=== PATIENT | male | born 1985 | race Caucasian/White ===

== ENCOUNTER 2024-09-14 12:33 | Emergency (ER) | payer OTHER, SELFPAY ==
[2024-09-14 12:38] VITALS: BP 120/81
[2024-09-14 13:03] LABS: % Basophils 0.5 % (0-2); % Eosinophils 0.8 % (0-6); % Immature Granulocytes 0.3 % (0-0.5); % Lymphocytes 28.3 % (20.5-51.1); % Neutrophils 62.1 % (42.2-75.2); Absolute Lymphocytes 1.1 10^3/uL (1.2-3.4); Absolute Monocytes 0.3 10^3/uL (0.1-0.6); Absolute Neutrophils 2.4 10^3/uL (1.4-6.5); Hematocrit 44.2 % (39.0-52.0); Hemoglobin 14.8 g/dL (13.0-18.0); Mean Corp Hgb Conc. 33.5 g/dL (33.0-37.0); Mean Corpuscular Hgb 30.4 pg (27.0-31.0); Mean Corpuscular Volume 90.8 fL (80.0-94.0); Mean Platelet Volume 10.2 fL (7.4-10.4); Nucleated Red Blood Cells % 0 % (-); Platelet Count 254 10^3/uL (130-400); Red Blood Cell Count 4.87 10^6/uL (4.70-6.10); White Blood Cell Count 3.9 10^3/uL (4.8-10.8)
[2024-09-14 13:37] LABS: Alkaline Phosphatase 54 U/L (38-126); Blood Urea Nitrogen 19 mg/dl (9-20); Calcium 9.6 mg/dl (8.4-10.2); Carbon Dioxide 29 mmol/L (22-30); Chloride 103 mmol/L (98-107); Glucose 90 mg/dl (70-99); Potassium 4.5 mmol/L (3.5-5.1); Sodium 142 mmol/L (135-145); eGFR > 60.00
[2024-09-14 13:38] LABS: ALT (SGPT) 24 U/L (0-50); AST (SGOT) 24 U/L (17-59); Albumin 4.8 g/dl (3.5-5.0); Total Bilirubin 0.5 mg/dl (0.2-1.3); Total Protein 7.3 g/dl (6.3-8.2)
[2024-09-14 13:39] LABS: Direct Bilirubin 0.1 mg/dl (0.0-0.4)
[2024-09-14 14:07] LABS: Lipase 109 U/L (23-300)
[2024-09-14 16:00] VITALS: BP 123/90; BMI 20.3
[2024-09-14] MEDS: PEPCID 40 MG PO (16:35)
[2024-09-14] MEDS: MAALOX 40 PO (16:36)
--- NOTE | 2024-09-14 18:04 | ED.GENMED ---
History of Present Illness
General
Chief Complaint: Abdominal Symptoms
Source: patient
Exam Limitations: none
Time Seen by Provider: 09/14/24 15:53
Nursing documentation reviewed up to this point in time: agreed with
History of Present Illness
History of Present Illness:
38-year-old male presenting to the emergency department today with concerns of upper abdominal pain mainly to the right upper quadrant Is burning earlier today somewhat improved did have some nausea. Ongoing symptoms to some degree over the past
few months since having his gallbladder removed. Has been following up with GI.
Review of Systems
Review of Systems
Allergies reviewed?: Yes
All Other Systems: ROS reviewed and negative except as documented in HPI and ROS
Phy Exam
Physical Exam
Physical Exam:
GENERAL: Alert , in no apparent distress
EYE: pupils equal and reactive
NECK: Supple, no significant adenopathy.
ENT: o/p clr, mmm.
CARDIAC: Regular rate and rhythm .
LUNGS: Clear breath sounds bilaterally, no acute respiratory distress, no wheezes/rales/rhonchi
ABDOMEN: Soft, without focal tenderness, no r/g, no cvat
NEUROLOGICAL: Alert and oriented, no focal neuro deficits
SKIN: Warm and dry, skin intact.
MUSCULOSKELETAL: No edema, well perfused.
PSYCH: Normal and appropriate interaction.
Course
Orders/Labs/Results
Orders:
Orders
09/14/24 12:44
US Abdomen Complete/Upper Urgent
Comment:
Reason For Exam: RUQ pain
09/14/24 12:54
Complete Blood Count/With Diff Urgent
Comprehensive Metabolic Panel Urgent
Direct Bilirubin Urgent
Lipase Urgent
09/14/24 16:16
Famotidine [Pepcid] 40 mg PO NOW STA
Mag Hydrox/Al Hydrox/Simeth [Maalox] 30 ml Phenobarb/Hyoscy/Atropine/Scop [] 10 ml PO NOW
09/14/24 16:34
Mag Hydrox/Al Hydrox/Simeth [Maalox] 30 ml .ROUTE .STK-MED ONE
Phenobarb/Hyoscy/Atropine/Scop [] 10 ml .ROUTE .STK-MED ONE
Abnormal Lab Results
09/14/24
12:54
WBC 3.9 L 10^3/uL
(4.8-10.8)
Absolute Lymphs (auto) 1.1 L 10^3/uL
(1.2-3.4)
09/14/24 12:54
09/14/24 12:54
Vital Signs
Initial and Last Documented VS:
Initial Vital Signs
Temp Pulse BP Pulse Ox
98.2 F 82 120/81 100
09/14/24 12:38 09/14/24 12:38 09/14/24 12:38 09/14/24 12:38
Last Documented Vital Signs
Temp Pulse Resp BP Pulse Ox
98.2 F 84 20 123/90 99
09/14/24 12:38 09/14/24 16:00 09/14/24 16:00 09/14/24 16:00 09/14/24 16:00
MDM/Problems Addressed
MDM/Problems Addressed:
38-year-old male presenting to the emergency department today with concerns of right upper quadrant burning discomfort that started earlier today has somewhat improved since. No vomiting has had nausea. Has had some degree of upper abdominal
discomfort over the past few months is since having his gallbladder removed. Has been following up with Dr. Munguia and has an ERCP scheduled for 1 month. On arrival vital signs are normal. No reproducible discomfort to the abdomen labs
unremarkable ultrasound of the abdomen without acute abnormalities. Case discussed with GI that we will have him follow-up as an outpatient. Otherwise stable for outpatient management return precautions given.
*Critical Care Note
Total Time (30-74mins, 75-104mins- exclusive of procedures): Not Applicable
ED Attending Note
-
Portions of this chart may have been created with voice recognition software.� Occasional wrong word or��sound alike� substitutions may have occurred due to the inherent limitations of voice recognition software.
Discharge Plan
Departure
Patient Disposition: Home (Routine Discharge)
Date of Disposition: 09/14/24
Time of Disposition: 18:05
Patient with high blood pressure during this ER visit?: No
Condition: Good
Covid-19: Not Applicable
Discharge Problem:
Abdominal pain
Instructions: Abdominal Pain
Prescriptions:
New
pantoprazole [Protonix] 20 mg tablet,delayed release (DR/EC)
20 mg PO DAILY Qty: 14 0RF
Referrals:
Tonya Gonzales MD [Family Provider] -
Activity Restrictions/Additional Instructions:
You came to the emergency department today with concerns of ongoing abdominal pain. Please take the prescribed medications and follow-up closely with your GI doctor. Return to the emergency department any worsening, new or concerning symptoms.
Interventions
Interventions:
*Risk Screen - Suicide Last Done: 09/14/24 12:39
*General Assessment Last Done: 09/14/24 12:39
*Neglect/Abuse Screening Last Done: 09/14/24 12:39
ED- Fall Risk Assessment Last Done: 09/14/24 16:02
*ED COVID-19 Vaccine History Last Done: 09/14/24 16:00
JM-Pknujs-Mwzhpoeggm Assessment Last Done: 09/14/24 16:00
Discharge Date and Time
Print Language: BELIZEAN
== END 2024-09-14 18:55 | disposition home or self-care (01) ==
LOC: EMR 12:33
PROVIDERS: Physician Assistant; EMERGENCY PHYSICIAN Student in an Organized Health Care Education/Training Program; FAMILY PHYSICIAN Family Medicine
DX: R10.11 Right upper quadrant pain (principal); Z90.49 Acquired absence of other specified parts of digestive tract
CPT/HCPCS: 99284; 76700; 80053; 82248; 83690; 85025

== ENCOUNTER 2024-10-12 06:26 | Day surgery (SDC) | payer OTHER, SELFPAY ==
[2024-10-12 10:21] VITALS: BMI 20.1
[2024-10-12 10:23] VITALS: BMI 20.1
[2024-10-12 10:24] VITALS: BP 118/79
[2024-10-12 12:52] VITALS: BP 90/58
[2024-10-12 12:56] VITALS: BP 94/54
[2024-10-12 13:00] VITALS: BP 103/68
[2024-10-12 13:15] VITALS: BP 95/64
[2024-10-12 13:30] VITALS: BP 99/67
== END 2024-10-12 13:50 | disposition home or self-care (01) ==
LOC: SDS 06:26
PROVIDERS: ATTENDING PHYSICIAN Internal Medicine Gastroenterology
DX: K83.8 Other specified diseases of biliary tract (principal); R93.5 Abnormal findings on diagnostic imaging of other abdominal regions, including retroperitoneum; R10.11 Right upper quadrant pain
CPT/HCPCS: 43237

== ENCOUNTER → 2024-12-08 07:54 | Outpatient (REF) | payer OTHER, SELFPAY | LOC: RAD 07:54 | PROVIDERS: ATTENDING PHYSICIAN Internal Medicine Gastroenterology; FAMILY PHYSICIAN Family Medicine | DX: R10.13 Epigastric pain (principal) | CPT/HCPCS: 78264; A9541 ==

== ENCOUNTER → 2025-02-28 09:23 | Outpatient (REF) | payer OTHER, SELFPAY | LOC: HWRAD 09:23 | PROVIDERS: ATTENDING PHYSICIAN Physician Assistant; FAMILY PHYSICIAN Family Medicine | DX: J32.8 Other chronic sinusitis (principal) | CPT/HCPCS: 70486 ==